=== PATIENT | female | born 1945 | race Caucasian/White ===

== ENCOUNTER 2016-10-04 06:40 | Inpatient (IN) | payer OTHER ==
[~2016-10-04] VITALS: Ht 157.5 cm; Wt 86.0 kg
[~2016-10-04 06:40] MED LIST: ALEVE220 MG PO; ASMANEX TW200 MICRO1 IH; AZELASTINE137 MCG/0. BOTH NARES; BENADRYL25 MG PO; CHILDREN'S ZYRT10 M1 PO; CLONAZEPAM0.5 MG PO; CREON 241 CAPSULE PO; DOK PLUS TABLE1 EACH PO; EXCEDRIN MIGRA1 EAC3 PO; GLUCOPHAGE XR,500 MG PO; GLUCOPHAGE500 MG PO; HIPREX1 GM PO; IMODIUM A-D2 M2 PO; IMODIUM MS REL1 EACH PO; IRON325 M1 PO; KLONOPIN0.5 M1 PO; LEXAPRO20 MG PO; LIDODERM 5% P1 PATCH TD; LIPITOR20 MG PO; LO-DOSE ASPIRIN81 M2 PO; MELATONIN5 M2 PO; MICROZIDE12.5 M1 PO; NASONEB NASAL1 EACH MC; NASONEX17 GM BOTH NARES; NORVASC5 MG PO; OXYCODONE HCL5 MG PO; OXYCONTIN10 MG PO; PRAVACHOL20 MG PO; PROAIR RESPICL90 MCG IH; PROTONIX20 MG PO; PROTONIX40 MG PO; TOPROL XL50 MG PO; TOPROL XL6.25 MG PO; TRAMADOL HCL50 MG PO; TYLENOL REGULA325 MG PO; VENTOLIN HFA18 GM IH; VITAMIN D2000 INTUN PO; XARELTO10 MG PO; ZANTAC150 MG PO; ZOFRAN4 MG PO; ZYRTEC10 M3 PO
[2016-10-04 07:52] VITALS: BP 134/69
[2016-10-04 08:14] LABS: POINT-OF-CARE METER ID UU14174212
[2016-10-04 11:49] LABS: POINT-OF-CARE METER ID UU13113675
[2016-10-04 13:25] VITALS: BP 127/63
[2016-10-04 15:49] VITALS: BP 105/55
[2016-10-04 16:30] LABS: POINT-OF-CARE METER ID UU13113712
[2016-10-04 20:12] VITALS: BP 128/59
[2016-10-04 22:10] LABS: POINT-OF-CARE METER ID UU13113712
[2016-10-05 00:17] VITALS: BP 106/53
[2016-10-05 04:15] VITALS: BP 103/62
[2016-10-05 05:23] LABS: HEMATOCRIT 35.8 % (36.0-46.0); MCV 89.9 FL (83-99)
[2016-10-05 05:54] LABS: ANION GAP 8 MEQ/L (2-14); CHLORIDE 104 MEQ/L (99-109); GFR ESTIMATE (CALCULATED) > 59 mL/min/; GLUCOSE 146 mg/dL (70-99); POTASSIUM 3.7 MEQ/L (3.7-5.4); SAMPLE HEMOLYSIS CHECK 0; SAMPLE ICTERIC CHECK 0; SAMPLE LIPEMIA CHECK 0; SODIUM 138 MEQ/L (136-147); UREA NITROGEN (BUN) 13 mg/dL (9-23)
[2016-10-05 08:17] VITALS: BP 104/55
[2016-10-05 11:49] VITALS: BP 114/54
[2016-10-05 11:51] LABS: POINT-OF-CARE METER ID UU13113712
[2016-10-05 15:47] VITALS: BP 129/58
[2016-10-05 16:38] LABS: POINT-OF-CARE METER ID UU13113712
[2016-10-05 19:47] VITALS: BP 146/66
[2016-10-05 21:45] LABS: POINT-OF-CARE METER ID UU13113712
[2016-10-06 00:30] VITALS: BP 146/64
[2016-10-06 04:27] VITALS: BP 128/59
[2016-10-06 05:32] LABS: HEMATOCRIT 37.6 % (36.0-46.0); MCV 88.5 FL (83-99)
[2016-10-06 07:36] LABS: POINT-OF-CARE METER ID UU13113712
[2016-10-06] MEDS ORDERED: XARELTO10 MG PO (08:20)
[2016-10-06] MEDS ORDERED: OXYCODONE HCL5 MG PO (08:20)
[2016-10-06] MEDS ORDERED: SENNA PLUS TAB1 EACH PO (08:20)
[2016-10-06 11:17] LABS: POINT-OF-CARE METER ID UU13113712
[2016-10-06 11:42] VITALS: BP 116/55
[2016-10-06 15:30] VITALS: BP 120/57
== END 2016-10-06 15:34 | DRG 470 ==
LOC: 2SOUTH 06:40 → 3WEST 12:50 → 2SOUTH 13:22 → 3WEST 10-06 15:34
PROVIDERS: Orthopaedic Surgery
PROC: 0SRC0J9 Replacement of Right Knee Joint with Synthetic Substitute, Cemented, Open Approach (ICD-10-PCS; principal; 2016-10-04)
DX: M17.11 Unilateral primary osteoarthritis, right knee (principal); I10 Essential (primary) hypertension; E11.9 Type 2 diabetes mellitus without complications; F32.9 Major depressive disorder, single episode, unspecified; G47.30 Sleep apnea, unspecified; J45.909 Unspecified asthma, uncomplicated; Z90.49 Acquired absence of other specified parts of digestive tract
CPT/HCPCS: 80048; 82948; 85014; 85018; 94640; 94640 76; 99202; C1713; J0131; J0690; J1815; J1885; J2250; J2405; J2795; J7030; J7050; L1820